=== PATIENT | male | born 1960 | race American Indian/Alaskan Native ===

== ENCOUNTER 2016-06-10 06:45 | Emergency (ER) | payer MEDICAID, OTHER ==
[~2016-06-10] VITALS: Ht 175.3 cm; Wt 88.5 kg
[2016-06-10 07:04] VITALS: BP 142/88
[2016-06-10 08:03] LABS: Hematocrit 46.1 % (41.0-53.0); Mean Corpuscular Hgb Conc. 34.7 g/dL (32.0-36.0); Mean Corpuscular Volume 89.4 fL (80.0-100.0); Mean Platelet Volume 8.8 fL (7.4-10.4); Platelet Count (auto) 253 10^3/uL (140-450); Red Cell Distribution Width 13.5 % (11.6-16.0); SUSPECT VIEW TRANSMISSION; White Blood Cell 9.2 10^3/uL (4.4-10.8)
[2016-06-10 08:11] LABS: Metamyelocytes % 0; Myelocytes % 0; Promyelocytes % 0; Reactive Lymphocytes 0
[2016-06-10 08:15] LABS: Albumin 4.3 g/dL (3.4-5.0); BUN/Creatinine Ratio 17.8; Bilirubin, Total 0.6 mg/dL (0.2-1.0); Calcium 9.3 mg/dL (8.5-10.1); Magnesium 1.9 mg/dL (1.6-2.6); Potassium 3.7 mmol/L (3.5-5.1); Total Protein 8.2 g/dL (6.4-8.2)
[2016-06-10 08:21] LABS: Platelet Clumps FEW; Platelet Estimate Adequate
== END 2016-06-10 09:41 | disposition left against medical advice (07) ==
LOC: ER 06:48
DX: R11.2 Nausea with vomiting, unspecified (principal); R10.9 Unspecified abdominal pain; Z53.21 Procedure and treatment not carried out due to patient leaving prior to being seen by health care provider
CPT/HCPCS: 36415; 80053; 83690; 83735; 85007; 85027; 85049; 93005